=== PATIENT | female | born 1980 | race Asian ===

== ENCOUNTER 2018-08-20 04:38 | Inpatient (IN) | payer BC, OTHER ==
[2018-08-20 05:26] LABS: ADD MAN DIFF? NO
[2018-08-20 05:27] LABS: BASOPHIL # 0.1 10^3/ul (0.0-0.1); BASOPHILS % 0.5 % (0.0-2.0); EOSINOPHILS # 0.4 10^3/ul (0.0-0.5); EOSINOPHILS % 2.3 % (0.0-7.0); HEMATOCRIT 39.5 % (37.0-47.0); HEMOGLOBIN 12.8 g/dl (12.0-16.0); LYMPHOCYTES # 1.4 10^3/ul (0.8-2.9); LYMPHOCYTES % 9.3 % (15.0-51.0); MEAN CORPUSCULAR HEMOGLOBIN 26.2 pg (29.0-33.0); MEAN CORPUSCULAR HGB CONC 32.4 g/dl (32.0-37.0); MEAN CORPUSCULAR VOLUME 80.8 fl (82.0-101.0); MEAN PLATELET VOLUME 10.5 fl (7.4-10.4); MONOCYTE # 0.5 10^3/ul (0.3-0.9); MONOCYTES % 2.9 % (0.0-11.0); NEUTROPHIL # 13.1 10^3/ul (1.6-7.5); NEUTROPHILS % 84.5 % (39.0-77.0); PLATELET COUNT 281 10^3/UL (140-415); RED BLOOD COUNT 4.89 10^6/ul (4.20-5.40); RED CELL DISTRIBUTION WIDTH 13.6 % (11.5-14.5)
[2018-08-20 05:27] LABS: WHITE BLOOD COUNT 15.5 10^3/ul (4.8-10.8)
[2018-08-20] MEDS: ONDANSETRON 4 MG INJ IV (05:39)
[2018-08-20] MEDS: SOD CHLORIDE 0.9% 1,000 ML IV ×2 (05:39→09:42)
[2018-08-20] MEDS: morphine 4 MG/ML VIAL IV (05:39)
[2018-08-20 05:47] LABS: ALANINE AMINOTRANSFERASE 31 IU/L (13-69); ALBUMIN 4.1 g/dl (3.3-4.9); ALBUMIN/GLOBULIN RATIO 1.13; ALKALINE PHOSPHATASE 116 IU/L (42-121); ANION GAP 14 (8-16); ASPARTATE AMINO TRANSFERASE 21 IU/L (15-46); BILIRUBIN,INDIRECT 0.6 mg/dl (0-1.1); BILIRUBIN,TOTAL 0.6 mg/dl (0.2-1.3); BLOOD UREA NITROGEN 8 mg/dl (7-20); CALCIUM 9.1 mg/dl (8.4-10.2); CARBON DIOXIDE 26 mmol/L (21-31); CHLORIDE 105 mmol/L (97-110); GLUCOSE 191 mg/dl (70-220); LIPASE 38 U/L (23-300); POTASSIUM 3.9 mmol/L (3.5-5.1); SODIUM 141 mmol/L (135-144); TOTAL PROTEIN 7.7 g/dl (6.1-8.1)
[2018-08-20 06:15] LABS: URINE BLOOD (Dip) POC Negative (NEGATIVE); URINE KETONES (Dip) POC 2+ (NEGATIVE); URINE LEUKOCYTE EST (Dip) POC Trace (NEGATIVE); URINE NITRITE (Dip) POC Negative (NEGATIVE); URINE TOTAL PROTEIN POC Trace (NEGATIVE)
[2018-08-20 06:15] LABS: URINE PH (Dip) POC 5.5 (5.0-8.5)
[2018-08-20] MEDS: PIPER-TAZO 3.375 GM IV (PMX) 100 ML IVPB ×3 (06:39→17:58)
[2018-08-20] MEDS: morphine 2 MG INJ IV ×3 (09:28→19:26)
[2018-08-20] MEDS ORDERED: NACL 0.9% 3 ML SYG IV (09:30)
[2018-08-20] MEDS ORDERED: ACETAMINOPHEN 650 MG SUPP PR (09:30)
[2018-08-20] MEDS ORDERED: ALPRAZOLAM 0.5 MG TAB PO (14:00)
[2018-08-20 14:57] LABS: INR 0.98; PROTIME 13.1 Sec (11.9-14.9)
[2018-08-20] MEDS: IOHEXOL 14.3 MG(I)/ML (ADULT) BTL PO (15:45)
[2018-08-20] MEDS ORDERED: SOD CHLORIDE 0.9% 100 ML (17:32)
[2018-08-20] MEDS ORDERED: IOHEXOL 300MG/ML 150 ML BTL (17:32)
[2018-08-20] MEDS: ACETAMINOPHEN 1000MG/100ML IV 100 ML IVPB (23:25)
[2018-08-21] MEDS: morphine 2 MG INJ IV ×3 (00:10→21:07)
[2018-08-21] MEDS: PIPER-TAZO 3.375 GM IV (PMX) 100 ML IVPB ×4 (00:28→18:00)
[2018-08-21] MEDS: SOD CHLORIDE 0.9% 1,000 ML IV (01:23)
[2018-08-21 05:14] LABS: WHITE BLOOD COUNT 12.2 10^3/ul (4.8-10.8)
[2018-08-21 05:14] LABS: ADD MAN DIFF? NO; BASOPHIL # 0.1 10^3/ul (0.0-0.1); BASOPHILS % 0.7 % (0.0-2.0); EOSINOPHILS # 0.1 10^3/ul (0.0-0.5); EOSINOPHILS % 1.1 % (0.0-7.0); HEMATOCRIT 34.7 % (37.0-47.0); HEMOGLOBIN 11.2 g/dl (12.0-16.0); LYMPHOCYTES # 1.8 10^3/ul (0.8-2.9); LYMPHOCYTES % 14.7 % (15.0-51.0); MEAN CORPUSCULAR HEMOGLOBIN 25.7 pg (29.0-33.0); MEAN CORPUSCULAR HGB CONC 32.3 g/dl (32.0-37.0); MEAN CORPUSCULAR VOLUME 79.8 fl (82.0-101.0); MEAN PLATELET VOLUME 10.6 fl (7.4-10.4); MONOCYTE # 0.9 10^3/ul (0.3-0.9); MONOCYTES % 7.1 % (0.0-11.0); NEUTROPHIL # 9.3 10^3/ul (1.6-7.5); PLATELET COUNT 249 10^3/UL (140-415); RED BLOOD COUNT 4.35 10^6/ul (4.20-5.40); RED CELL DISTRIBUTION WIDTH 14.1 % (11.5-14.5)
[2018-08-21 05:47] LABS: ALANINE AMINOTRANSFERASE 116 IU/L (13-69); ALBUMIN 2.9 g/dl (3.3-4.9); ALBUMIN/GLOBULIN RATIO 0.85; ALKALINE PHOSPHATASE 138 IU/L (42-121); ANION GAP 10 (8-16); ASPARTATE AMINO TRANSFERASE 70 IU/L (15-46); BILIRUBIN,INDIRECT 1.6 mg/dl (0-1.1); BILIRUBIN,TOTAL 1.6 mg/dl (0.2-1.3); BLOOD UREA NITROGEN 8 mg/dl (7-20); CALCIUM 8.6 mg/dl (8.4-10.2); CARBON DIOXIDE 27 mmol/L (21-31); CHLORIDE 105 mmol/L (97-110); CHOLESTEROL 82 mg/dl (100-200); CREATININE 0.66 mg/dl (0.44-1.00); GLUCOSE 105 mg/dl (70-220); HDL CHOLESTEROL 41 mg/dl (34-88); LDL CHOLESTEROL,CALCULATED 31 mg/dl; PHOSPHORUS 3.6 mg/dl (2.5-4.9); POTASSIUM 3.4 mmol/L (3.5-5.1); SODIUM 139 mmol/L (135-144); TOTAL PROTEIN 6.3 g/dl (6.1-8.1); TRIGLYCERIDES 49 mg/dl (0-149)
[2018-08-21 05:55] LABS: HEMOGLOBIN A1C 5.8 % (0-5.9)
[2018-08-21] MEDS ORDERED: ROCURONIUM 50 MG INJ ×2 (07:00→18:49)
[2018-08-21] MEDS: POTASSIUM CHLORIDE 100 ML IVPB ×2 (12:54→16:07)
[2018-08-21] MEDS: ONDANSETRON 4 MG INJ IV (12:54)
[2018-08-21] MEDS ORDERED: IOHEXOL 300MG/ML 30 ML BTL (18:18)
[2018-08-21] MEDS ORDERED: PROPOFOL 100 ML (18:49)
[2018-08-21] MEDS ORDERED: LIDOCAINE 2% (SDV) 5 ML INJ (18:50)
[2018-08-21] MEDS ORDERED: ACETAMINOPHEN 1000MG/100ML IV 100 ML (18:50)
[2018-08-21] MEDS ORDERED: DEXAMETHASONE 4 MG/ML 1 ML INJ (18:50)
[2018-08-21] MEDS ORDERED: ONDANSETRON 4 MG INJ (18:50)
[2018-08-21] MEDS: BUPIVACAINE 0.25% (MPF) 30 ML INJ (19:08)
[2018-08-21] MEDS: LIDOCAINE 1%/EPI 30 ML INJ (19:08)
[2018-08-21] MEDS ORDERED: SUGAMMADEX SODIUM 200 MG/2 ML VIAL IV (19:35)
[2018-08-21] MEDS ORDERED: KETOROLAC 30 MG INJ (19:40)
[2018-08-21] MEDS ORDERED: LABETALOL HCL 20MG INJ IV (20:00)
[2018-08-21] MEDS ORDERED: FENTAnyl 50 MCG/ML VIAL IV ×2 (20:00)
[2018-08-21] MEDS ORDERED: ONDANSETRON 4 MG INJ IV (20:00)
[2018-08-21] MEDS ORDERED: EPHEDrine SULFATE 50 MG/5 ML SYG IV (20:00)
[2018-08-21] MEDS ORDERED: DIPHENHYDRAMINE 50 MG INJ IV (20:00)
[2018-08-21] MEDS ORDERED: hydrALAzine 20 MG INJ IV (20:00)
[2018-08-21] MEDS ORDERED: ALBUTEROL 0.083% (NEB) 2.5 MG/3 ML AMP HHN (20:00)
[2018-08-21] MEDS ORDERED: MEPERIDINE 25 MG INJ IV (20:00)
[2018-08-21] MEDS ORDERED: OXYCODONE/ACETAMINOPHEN (5/325) TAB PO ×2 (20:00)
[2018-08-21] MEDS ORDERED: HYDROmorphONE 1 MG/5 ML IV SYRINGE IV ×3 (20:00)
[2018-08-21] MEDS ORDERED: METOCLOPRAMIDE 10 MG INJ IV (20:00)
[2018-08-21] MEDS ORDERED: MIDAZOLAM 1 MG/ML 2 ML INJ IV (20:00)
[2018-08-21] MEDS: FENTAnyl 50 MCG/ML VIAL IV (20:09)
[2018-08-21] MEDS: AL HYDROX/MG HYDROX/SIMETH 30 ML CUP PO (20:52)
[2018-08-21] MEDS: HYDROCODONE/APAP (5/325) TAB PO (23:10)
[2018-08-22] MEDS: PIPER-TAZO 3.375 GM IV (PMX) 100 ML IVPB ×4 (00:36→11:21)
[2018-08-22] MEDS: morphine 2 MG INJ IV (05:31)
[2018-08-22 05:39] LABS: ADD MAN DIFF? NO
[2018-08-22 05:40] LABS: WHITE BLOOD COUNT 11.5 10^3/ul (4.8-10.8)
[2018-08-22 05:40] LABS: BASOPHILS % 0.3 % (0.0-2.0); HEMATOCRIT 36.1 % (37.0-47.0); HEMOGLOBIN 11.9 g/dl (12.0-16.0); LYMPHOCYTES # 0.6 10^3/ul (0.8-2.9); LYMPHOCYTES % 5.3 % (15.0-51.0); MEAN CORPUSCULAR HEMOGLOBIN 26.2 pg (29.0-33.0); MEAN CORPUSCULAR VOLUME 79.3 fl (82.0-101.0); MEAN PLATELET VOLUME 10.6 fl (7.4-10.4); MONOCYTE # 0.3 10^3/ul (0.3-0.9); NEUTROPHIL # 10.4 10^3/ul (1.6-7.5); NEUTROPHILS % 90.9 % (39.0-77.0); PLATELET COUNT 303 10^3/UL (140-415); RED BLOOD COUNT 4.55 10^6/ul (4.20-5.40); RED CELL DISTRIBUTION WIDTH 13.5 % (11.5-14.5)
[2018-08-22 06:27] LABS: ALANINE AMINOTRANSFERASE 97 IU/L (13-69); ALBUMIN 3.7 g/dl (3.3-4.9); ALBUMIN/GLOBULIN RATIO 1.02; ALKALINE PHOSPHATASE 150 IU/L (42-121); ANION GAP 12 (8-16); ASPARTATE AMINO TRANSFERASE 70 IU/L (15-46); BILIRUBIN,INDIRECT 0.5 mg/dl (0-1.1); BILIRUBIN,TOTAL 0.5 mg/dl (0.2-1.3); BLOOD UREA NITROGEN 10 mg/dl (7-20); CALCIUM 8.8 mg/dl (8.4-10.2); CARBON DIOXIDE 25 mmol/L (21-31); CHLORIDE 107 mmol/L (97-110); CREATININE 0.57 mg/dl (0.44-1.00); GLUCOSE 134 mg/dl (70-220); POTASSIUM 4.6 mmol/L (3.5-5.1); SODIUM 139 mmol/L (135-144); TOTAL PROTEIN 7.3 g/dl (6.1-8.1)
[2018-08-22] MEDS ORDERED: morphine 2 MG INJ IV (10:00)
[2018-08-22] MEDS ORDERED: ACETAMINOPHEN 500 MG TAB PO (10:00)
[2018-08-22] MEDS: OXYCODONE/ACETAMINOPHEN (5/325) TAB PO ×2 (10:06→14:30)
[2018-08-22] MEDS ORDERED: OXYCODONE/ACETAMINOPHEN (10/325) TAB PO (14:30)
== END 2018-08-22 14:50 | disposition home or self-care (01) | DRG 418 ==
LOC: E/R 04:38 → PP2 06:28
PROC: 0FT44ZZ Resection of Gallbladder, Percutaneous Endoscopic Approach (ICD-10-PCS; principal; 2018-08-21 15:30)
PROC: 0DNU4ZZ Release Omentum, Percutaneous Endoscopic Approach (ICD-10-PCS; 2018-08-21 15:30)
DX: K80.12 Calculus of gallbladder with acute and chronic cholecystitis without obstruction (principal); N39.0 Urinary tract infection, site not specified; E66.9 Obesity, unspecified; Z68.32 Body mass index [BMI] 32.0-32.9, adult; K66.0 Peritoneal adhesions (postprocedural) (postinfection); E88.09 Other disorders of plasma-protein metabolism, not elsewhere classified; E87.6 Hypokalemia
CPT/HCPCS: 36415; 74177; 74181; 76705; 80053; 80061; 81003; 81025; 83036; 83690; 83735; 84100; 84703; 85025; 85610; 87086; 88304; 96374; 96375; 99285-25